=== PATIENT | male | born 1950 | race Caucasian/White ===

== ENCOUNTER 2022-10-30 14:17 | Inpatient (IN) | payer OTHER ==
[~2022-10-30] VITALS: Ht 180.3 cm; Wt 142.8 kg
[2022-10-30 15:18] LABS: Hematocrit 45.2 % (37.0-53.0); Mean Corpuscular HGB 33.9 pg (26.0-34.0); Mean Corpuscular HGB Conc 33.2 g/dL (31.5-36.5); Mean Corpuscular Volume 102 fL (80-100); Mean Platelet Volume 10.3 fL (9.1-12.4); Platelet Count 101 K/mm3 (150-400); RDW Coefficient Variation 15.2 % (11.7-14.2); RDW Standard Deviation 57.4 fL (35.1-46.3); Red Blood Cell Count 4.42 M/mm3 (4.30-5.90); White Blood Cell Count 16.42 K/mm3 (4.00-11.30)
[2022-10-30 15:30] LABS: Albumin, Blood 2.9 g/dL (3.4-5.0); Albumin/Globulin Ratio 0.9 (0.8-1.8); Bilirubin, Total 1.7 mg/dL (0.1-1.0); Bun/Creatinine Ratio 17.4 (12.0-20.0); Calcium, Blood 8.7 mg/dL (8.5-10.1); Creatinine, Blood 2.13 mg/dL (0.60-1.20); Globulin, Blood 3.2 g/dL (2.2-4.0); Potassium, Blood 3.7 mmol/L (3.5-5.5); Total Protein, Blood 6.1 g/dL (6.4-8.2)
[2022-10-30 16:21] LABS: BAND PERCENT MAN 33 % (0-8); BASOPHILS PERCENT MAN 0 % (0-2); EOSINOPHILS PERCENT MAN 0 % (0-6); LYMPHOCYTES ABSOLUTE MAN 0.49 K/mm3 (0.84-5.20); LYMPHOCYTES PERCENT MAN 3 % (21-46); METAMYELOCYTE ABSOLUTE MAN 0.49 K/mm3 (0.00-0.00); METAMYELOCYTE PERCENT MAN 3 % (0-0); MONOCYTES ABSOLUTE MAN 0.32 K/mm3 (0.16-1.47); MONOCYTES PERCENT MAN 2 % (4-13); MYELOCYTE ABSOLUTE MAN 0.32 K/mm3 (0.00-0.00); MYELOCYTE PERCENT MAN 2 % (0-0); NEUTROPHILS ABSOLUTE MAN 14.77 K/mm3 (1.96-9.15); SEG NEUTROPHILS PERCENT MAN 57 % (41-73); TOTAL CELLS COUNTED 100
[2022-10-30] MEDS ORDERED: ATEN25 (18:48)
[2022-10-30] MEDS ORDERED: AMLO5 (18:48)
[2022-10-30] MEDS ORDERED: FINA5 PO (18:49)
[2022-10-30] MEDS ORDERED: GLUCOPHAGE1000 M1 PO (18:49)
[2022-10-30] MEDS ORDERED: Aspir 8181 MG PO (18:50)
[2022-10-30] MEDS ORDERED: Vitamin B-12100 MCG (18:50)
[2022-10-30] MEDS ORDERED: VITAMIN D310 MC4 PO (18:50)
[2022-10-30] MEDS ORDERED: GABA100 (18:50)
[2022-10-30 19:21] LABS: Base Excess Venous -3.4 mmol/L; Bicarbonate Venous 21.3 mmol/L (24.0-30.0); PCO2 Venous 42.7 mmHg (38-42); pH Blood Venous 7.33 (7.34-7.37)
[2022-10-30 19:42] LABS: Bicarbonate Venous 22.5 mmol/L (24.0-30.0); PCO2 Venous 47.4 mmHg (38-42); PO2 Venous 31.9 mmHg (38-42); pH Blood Venous 7.34 (7.34-7.37)
[2022-10-30 19:43] LABS: Base Excess Venous -0.6 mmol/L
[2022-10-30 20:17] LABS: Anti-Xa UFH, PHA Monitoring <0.10 IU/mL; International Normalized Ratio 1.26; Prothrombin Time Results 13.1 Sec (9.7-11.5)
[2022-10-30 22:01] VITALS: BP 139/85
[2022-10-30 22:15] VITALS: BP 141/87
[2022-10-30 22:30] VITALS: BP 155/93
[2022-10-30] MEDS ORDERED: FLUT.05NI ×2 (22:36→22:37)
[2022-10-30 22:45] VITALS: BP 148/84
[2022-10-30 22:52] LABS: Source, Urine Clean Catch
[2022-10-30 22:54] LABS: Bilirubin, Urine Neg (Neg); Blood, Urine 5+ (Neg); Glucose Qualitative, Urine 3+ (Neg); Ketones, Urine Neg (Neg); Leukocyte Esterase, Urine 3+ (Neg); Nitrite, Urine Pos (Neg); Protein, Urine 2+ (Neg); Urobilinogen, Urine NORM (Normal)
[2022-10-30 23:00] VITALS: BP 149/99
[2022-10-30 23:15] VITALS: BP 168/106
[2022-10-30 23:44] LABS: Appearance, Urine Hazy (Clear); Color, Urine Yellow (P-Yellow)
[2022-10-30 23:46] LABS: Amorphous Light (0-Heavy); Bacteria Many /hpf; Red Blood Cells, Urine 0-2 /hpf (0-2); Squamous Epithelial Cells Few /hpf (Few)
[2022-10-31] VITALS (17 sets, daily range): BP systolic 104–155; BP diastolic 61–88
[2022-10-31 04:55] LABS: Hematocrit 46.2 % (37.0-53.0); Hemoglobin 15.9 g/dL (13.5-17.5); Mean Corpuscular HGB 34.1 pg (26.0-34.0); Mean Corpuscular HGB Conc 34.4 g/dL (31.5-36.5); Mean Corpuscular Volume 99 fL (80-100); Platelet Count 65 K/mm3 (150-400); RDW Coefficient Variation 15.4 % (11.7-14.2); RDW Standard Deviation 56.2 fL (35.1-46.3); Red Blood Cell Count 4.66 M/mm3 (4.30-5.90); White Blood Cell Count 24.95 K/mm3 (4.00-11.30)
[2022-10-31 05:24] LABS: Albumin, Blood 2.9 g/dL (3.4-5.0); Albumin/Globulin Ratio 0.7 (0.8-1.8); BAND PERCENT MAN 24 % (0-8); BASOPHILS PERCENT MAN 0 % (0-2); Bilirubin, Total 1.8 mg/dL (0.1-1.0); Bun/Creatinine Ratio 21.5 (12.0-20.0); Calcium, Blood 8.8 mg/dL (8.5-10.1); Creatinine, Blood 2.19 mg/dL (0.60-1.20); EOSINOPHILS PERCENT MAN 0 % (0-6); Globulin, Blood 4.1 g/dL (2.2-4.0); LYMPHOCYTES ABSOLUTE MAN 0.74 K/mm3 (0.84-5.20); LYMPHOCYTES PERCENT MAN 3 % (21-46); METAMYELOCYTE ABSOLUTE MAN 1.74 K/mm3 (0.00-0.00); METAMYELOCYTE PERCENT MAN 7 % (0-0); MONOCYTES ABSOLUTE MAN 2.49 K/mm3 (0.16-1.47); MONOCYTES PERCENT MAN 10 % (4-13); MYELOCYTE ABSOLUTE MAN 0.24 K/mm3 (0.00-0.00); MYELOCYTE PERCENT MAN 1 % (0-0); Magnesium, Blood 2.7 mg/dL (1.6-2.4); NEUTROPHILS ABSOLUTE MAN 19.71 K/mm3 (1.96-9.15); Potassium, Blood 4.1 mmol/L (3.5-5.5); SEG NEUTROPHILS PERCENT MAN 55 % (41-73); TOTAL CELLS COUNTED 100
--- NOTE | 2022-10-31 05:37 | NUR ---
SHIFT SUMMARY: Pt arrived from ER at 2150. Vitals stable, off pressors. Pt feels short of breath, especially with activity or laying flat. He is tachypneic but o2 sats remain in the 90s. 2L NC applied by pt request for comfort. Lung sounds clear, diminished in bases. CPAP applied for bedtime. Voiding using urinal with minimal assistance. Had multiple BMs in the bed negron. He is on bedrest per order. Heparin running at 15units/kg/hr. Denies pain. NPO for angiogram this AM. He has not slept well overnight. He is anxious and feels somewhat short of breath even with CPAP on.
--- NOTE | 2022-10-31 06:47 | NUR ---
Heparin paused at [address] Aranda due to drop in platelets to 65K this AM. Pharmacist notified.
--- NOTE | 2022-10-31 07:54 | NUR ---
ASSUMED CARE I ASSUMED CARE OF THIS PATIENT AT 0700. PATIENT IS LYING IN BED AWAKE AND WATCHING TV. CPAP IN PLACE W/ PRESSURE OF 12 AND A 1LPM BLEED IN. SPO2 MID 90'S. NO MEDICATIONS INF AT THIS TIME. CVP MONITORING IN PLACE TO RT IJ CL. PATIENT DENIES PAIN AT THIS TIME. STATES WILL BE BRINGING IN HOME CPAP TODAY. DR. POLLACK TO BEDSIDE THIS MORNING WITH ORDERS TO BEGIN DIET AND THAT PATIENT WILL NOT BE GOING TO PST SUPERVISOR TODAY. REPORT RECEIVED FROM SIGRID OSHEA.
[2022-10-31 11:41] LABS: Vancomycin, Random 20.7 ug/mL
--- NOTE | 2022-10-31 17:01 | NUR ---
SHIFT SUMMARY PATIENT REMAINED ON CPAP FOR COMFORT T/O SHIFT WITH PRESSURE OF 10 ONCE SWITCHED TO HOME CPAP. SPO2 MID TO HIGH 90'S. BP STABLE WITH MAPS GREATER THAN 65. LEVOPHED NEVER STARTED AND RETURNED TO PHARMACY. HEPARIN AND CVP MONITORING DC'D. STATUS DOWNGRADED TO PCU STATUS. FAMILY VISITED WITH PATIENT T/O DAY. NO OTHER CHANGES DURING SHIFT.
[2022-11-01] VITALS (7 sets, daily range): BP systolic 107–169; BP diastolic 67–97
[2022-11-01 03:57] LABS: Base Excess Venous 4.3 mmol/L; Bicarbonate Venous 27.2 mmol/L (24.0-30.0); PCO2 Venous 43.8 mmHg (38-42); pH Blood Venous 7.42 (7.34-7.37)
[2022-11-01 03:59] LABS: Hematocrit 44.6 % (37.0-53.0); Hemoglobin 15.6 g/dL (13.5-17.5); Mean Corpuscular HGB 34.2 pg (26.0-34.0); Mean Corpuscular Volume 98 fL (80-100); Mean Platelet Volume 10.6 fL (9.1-12.4); RDW Coefficient Variation 15.1 % (11.7-14.2); RDW Standard Deviation 54.5 fL (35.1-46.3); Red Blood Cell Count 4.56 M/mm3 (4.30-5.90); White Blood Cell Count 26.27 K/mm3 (4.00-11.30)
[2022-11-01 04:16] LABS: Platelet Count 47 K/mm3 (150-400)
[2022-11-01 04:21] LABS: BAND PERCENT MAN 4 % (0-8); BASOPHILS PERCENT MAN 0 % (0-2); EOSINOPHILS PERCENT MAN 0 % (0-6); LYMPHOCYTES ABSOLUTE MAN 0.78 K/mm3 (0.84-5.20); LYMPHOCYTES PERCENT MAN 3 % (21-46); METAMYELOCYTE ABSOLUTE MAN 0.52 K/mm3 (0.00-0.00); METAMYELOCYTE PERCENT MAN 2 % (0-0); MONOCYTES ABSOLUTE MAN 0.78 K/mm3 (0.16-1.47); MONOCYTES PERCENT MAN 3 % (4-13); NEUTROPHILS ABSOLUTE MAN 24.16 K/mm3 (1.96-9.15); SEG NEUTROPHILS PERCENT MAN 88 % (41-73); TOTAL CELLS COUNTED 100
[2022-11-01 04:55] LABS: Albumin, Blood 2.5 g/dL (3.4-5.0); Anion Gap 9 mmol/L (6-16); Blood Urea Nitrogen 63 mg/dL (8-24); Bun/Creatinine Ratio 33.2 (12.0-20.0); CO2, Blood 26 mmol/L (21-32); Calcium, Blood 8.6 mg/dL (8.5-10.1); Chloride, Blood 102 mmol/L (98-108); Glomerular Filtration Rate 37 (60-); Glucose, Blood 138 mg/dL (70-99); Phosphorus, Blood 2.6 mg/dL (2.5-4.9); Potassium, Blood 3.6 mmol/L (3.5-5.5); Sodium, Blood 137 mmol/L (136-145)
--- NOTE | 2022-11-01 05:15 | NUR ---
SHIFT SUMMARY: Pt had a fairly good night. He was able to get some sleep. Dyspnea has improved from yesterday. He is wearing his home CPAP with a 2L bleed in. Dyspnea with exertion but not at rest. He ambulated to the bathroom 2 times with a walker and nurse supervision. Voiding using the urinal, but also had 2 incontinent episodes, large volume of urine. Post void residual was 0ml. Vitals stable overnight. Rhythm is sinus bradycardia with a bundle branch block and irregular rate, rates as low as 43 (not sustained) but mostly in the 50s-60. Platelets were critically low at 47k on AM labs, Dr. Brooks notified.
--- NOTE | 2022-11-01 07:30 | NUR ---
ASSUMED CARE: PT RESTING IN BED WITH CPAP IN PLACE. NSR IN 60S. VSS. GRAPHIC DESIGN ASSISTANT AT BEDSIDE ASSISTING TO BEDSIDE TOILET. NO ACUTE NEEDS OR CONCERNS AT THIS TIME.
--- NOTE | 2022-11-01 11:01 | NUR ---
DR MCKEON CAME TO SEE PT AND MADE THEM AWARE OF HIS CONCERNS FOR LABS. DR PLANS TO REVIEW LABS FURTHER TO DETERMINE IF THERE IS A TREND IN PLATELET AND LACTIC COUNTS. FAMILY AT BEDSIDE AND AWARE OF THIS. DENIES NEEDS AT THIS TIME.
--- NOTE | 2022-11-01 16:20 | NUR ---
PT'S CENTRAL LINE REMOVED FROM RIGHT IJ WITHOUT ISSUE. REPORT GIVEN TO SIGRID DUNHAM. PT TRANSFERRED TO PCU 14 VIA WHEEL CHAIR. FAMILY AT BEDSIDE AND FOLLOWED TO NEW ROOM. NO ACUTE NEEDS OR CONCERNS.
--- NOTE | 2022-11-01 17:13 | NUR ---
TRANSFER/SHIFT SUMMARY PT ARRIVED TO PCU 14 @1635 VIA WHEELCHAIR. ALERT AND ORIENTED X4, ABLE TO FOLLOW COMMANDS AND MAKE NEEDS KNOWN. STRENGTH EQUAL BILATERALLY. BP STABLE, HR SR 65, SATS >95% ON ROOM AIR, RESPIRATIONS EVEN AND UNLABORED AT REST. PT STATES SOB WITH EXCERTION. LUNG SOUNDS CLEAR IN UPPER, DIM IN BASES. PT W/ HOME CPAP AT BEDSIDE, WEARS WHEN NEEDED. NO COMPLAINTS OF CP/PRESSURE AT THIS TIME. +1 EDEMA NOTED IN BLE. FAMILY AT BEDSIDE, UPDATED ON PT CARE WITH PERMISSION. PT ORIENTED TO ROOM AND CALL LIGHT SYSTEM. BED IN LOW, CALL LIGHT IN REACH, WILL REPORT TO ONCOMING RN.
--- NOTE | 2022-11-02 01:29 | NUR ---
STRAIGHT CATH #1 PATIENT FIDGETING AND UNABLE TO REST, BLADDER SCAN SHOWED OVER 700ML. PATIENT IS UNABLE TO URINATE. STRAIGHT CATH PERFORMED WITH 775 OUT, CLAMPING AT 500 FOR 30MINS AND UNCLAMPING FOR REMAINDER 275 OUT. PATIENT TOLERATED WELL, AND ASLEEP CURRENTLY WITH AVASURE CAMERA ON. .
[2022-11-02 03:35] LABS: BASOPHILS ABSOLUTE AUTO 0.05 K/mm3 (0.00-0.23); BASOPHILS PERCENT AUTO 0 % (0-2); EOSINOPHILS ABSOLUTE AUTO 0.05 K/mm3 (0.00-0.68); EOSINOPHILS PERCENT AUTO 0 % (0-6); Hematocrit 48.2 % (37.0-53.0); Hemoglobin 16.7 g/dL (13.5-17.5); IMMATURE GRAN ABSOLUTE AUTO 0.07 K/mm3 (0.00-0.10); IMMATURE GRAN PERCENT AUTO 0 % (0-1); LYMPHOCYTES ABSOLUTE AUTO 1.07 K/mm3 (0.84-5.20); LYMPHOCYTES PERCENT AUTO 6 % (21-46); MONOCYTES ABSOLUTE AUTO 1.04 K/mm3 (0.16-1.47); MONOCYTES PERCENT AUTO 6 % (4-13); Mean Corpuscular HGB Conc 34.6 g/dL (31.5-36.5); Mean Corpuscular Volume 98 fL (80-100); Mean Platelet Volume 11.8 fL (9.1-12.4); NEUTROPHILS ABSOLUTE AUTO 16.04 K/mm3 (1.96-9.15); NEUTROPHILS PERCENT AUTO 88 % (41-73); RDW Coefficient Variation 14.9 % (11.7-14.2); RDW Standard Deviation 54.6 fL (35.1-46.3); Red Blood Cell Count 4.91 M/mm3 (4.30-5.90); White Blood Cell Count 18.32 K/mm3 (4.00-11.30)
[2022-11-02 03:56] LABS: Alanine Aminotransfer (ALT/SGP 83 U/L (12-78); Albumin, Blood 2.7 g/dL (3.4-5.0); Albumin/Globulin Ratio 0.6 (0.8-1.8); Alk Phos 147 U/L (50-136); Anion Gap 11 mmol/L (6-16); Aspartate Aminotrans (AST/SGOT 92 U/L (12-37); Blood Urea Nitrogen 70 mg/dL (8-24); Bun/Creatinine Ratio 37.8 (12.0-20.0); CO2, Blood 27 mmol/L (21-32); Calcium, Blood 8.7 mg/dL (8.5-10.1); Chloride, Blood 103 mmol/L (98-108); Creatinine, Blood 1.85 mg/dL (0.60-1.20); Globulin, Blood 4.3 g/dL (2.2-4.0); Glomerular Filtration Rate 38 (60-); Glucose, Blood 160 mg/dL (70-99); Phosphorus, Blood 2.7 mg/dL (2.5-4.9); Potassium, Blood 3.9 mmol/L (3.5-5.5); Sodium, Blood 141 mmol/L (136-145)
[2022-11-02 04:11] LABS: Platelet Count 49 K/mm3 (150-400)
--- NOTE | 2022-11-02 04:19 | NUR ---
Contacted Dr. Brooks regarding patient switching to Afib at the end of dayshift, which is new to the patient. Patient has no CP or increased SOB and asymptommatic of it at this time. Rates are 90-120, up to 140 with activity. Patients platelets are also low, however improved from yesterday and not on anticoagulation. Order to just monitor tele for rate changes.
--- NOTE | 2022-11-02 05:58 | NUR ---
Assumed care of pt at 1900. A/Ox4. Maintains over 95% on RA while awake and CPAP while asleep. LS clear on top and dim at bases. Patient is now in Afib 90-110 but up to 140's with activity with significant MUNSON. 2+ pitting edema in BLE. VSS. See previous RN note. Will report to kiran RN.
[2022-11-02 08:06] VITALS: BP 132/85
[2022-11-02 11:48] VITALS: BP 142/91
--- NOTE | 2022-11-02 11:48 | NUR ---
PATIENT EDUCATED RE: IGNITION SOURCES AND RISK OF INJURY WHILE OXYGEN IN USE. PATIENT DENIES SMOKING BUT IS ON NC OXYGEN. PATIENT ALSO DENIES HAVING IGNITION SOURCES IN HIS PERSONAL BELONGINGS. PATIENT VERBALIZED UNDERSTANDING OF EDUCATION AND HAD NO FURTHER QUESTIONS AT THIS TIME.
[2022-11-02 15:52] VITALS: BP 130/93
--- NOTE | 2022-11-02 17:10 | NUR ---
SHIFT SUMMARY: PT REMAINS ALERT AND ORIENTED X4, BP STABLE, PT REMAINS AFIB 100'S, 120'S WITH ACTIVITY, PT STATES NEW ONSET. MD MADE AWARE THIS AM, ORDERS RECEIVED FOR RATE CONTROL, SEE EMAR. AFEBRILE. SATS >97% ON ROOM AIR, WEARS CPAP W/ 2L BLEED IN WHILE SLEEPING. PT ABLE TO WORK WITH PT/OT THIS AFTERNOON. IND TO AND FROM BATHROOM. CALLS APPROPRIATELY. FAMILY AT BEDSIDE THIS EVENING. BED IN LOW, CALL LIGHT IN REACH, WILL REPORT TO ONCOMING RN.
[2022-11-02 20:11] VITALS: BP 109/70
[2022-11-03 03:48] VITALS: BP 128/99
[2022-11-03 03:58] LABS: BASOPHILS ABSOLUTE AUTO 0.03 K/mm3 (0.00-0.23); BASOPHILS PERCENT AUTO 0 % (0-2); EOSINOPHILS ABSOLUTE AUTO 0.08 K/mm3 (0.00-0.68); EOSINOPHILS PERCENT AUTO 1 % (0-6); Hematocrit 46.4 % (37.0-53.0); Hemoglobin 16.1 g/dL (13.5-17.5); IMMATURE GRAN ABSOLUTE AUTO 0.06 K/mm3 (0.00-0.10); IMMATURE GRAN PERCENT AUTO 1 % (0-1); LYMPHOCYTES ABSOLUTE AUTO 1.08 K/mm3 (0.84-5.20); LYMPHOCYTES PERCENT AUTO 11 % (21-46); MONOCYTES ABSOLUTE AUTO 1.07 K/mm3 (0.16-1.47); MONOCYTES PERCENT AUTO 11 % (4-13); Mean Corpuscular HGB 33.5 pg (26.0-34.0); Mean Corpuscular HGB Conc 34.7 g/dL (31.5-36.5); Mean Corpuscular Volume 97 fL (80-100); Mean Platelet Volume 11.6 fL (9.1-12.4); NEUTROPHILS ABSOLUTE AUTO 7.42 K/mm3 (1.96-9.15); NEUTROPHILS PERCENT AUTO 76 % (41-73); RDW Coefficient Variation 14.7 % (11.7-14.2); RDW Standard Deviation 52.8 fL (35.1-46.3); White Blood Cell Count 9.74 K/mm3 (4.00-11.30)
[2022-11-03 04:07] LABS: Platelet Count 45 K/mm3 (150-400)
[2022-11-03 04:19] LABS: Albumin, Blood 2.6 g/dL (3.4-5.0); Anion Gap 10 mmol/L (6-16); Blood Urea Nitrogen 62 mg/dL (8-24); Bun/Creatinine Ratio 37.6 (12.0-20.0); CO2, Blood 26 mmol/L (21-32); Calcium, Blood 8.4 mg/dL (8.5-10.1); Chloride, Blood 102 mmol/L (98-108); Creatinine, Blood 1.65 mg/dL (0.60-1.20); Glomerular Filtration Rate 44 (60-); Glucose, Blood 154 mg/dL (70-99); Magnesium, Blood 2.3 mg/dL (1.6-2.4); Potassium, Blood 3.7 mmol/L (3.5-5.5); Sodium, Blood 138 mmol/L (136-145)
--- NOTE | 2022-11-03 06:15 | NUR ---
SHIFT SUMMARY PATIENT ALERT AND ORIENTED x4. BP STABLE, TELE READING AFIB 100-120s, UP TO 150s WITH ACTIVITY, PATIENT WEARING CPAP OFF AND ON DURING THE NIGHT WITH O2 SAT >92%. PATIENT INDEPDENDENT TO BATHROOM, ADEQUATE OUTPUT DURING THE NIGHT. NO OTHER SIGNIFICANT CHANGES DURING THE NIGHT, WILL REPORT TO DAY SHIFT RN. PATIENT EDUCATED ON INCREASED IGNITION RISK WITH O2 USE. PATIENT VERBALIZED UNDERSTANDING AND PATIENT REPORTED THAT HE DOES NOT SMOKE. WILL CONTINUE TO MONITOR IGNITION RISK.
[2022-11-03 07:45] VITALS: BP 132/72
--- NOTE | 2022-11-03 09:39 | NUR ---
SAFETY PATIENT EDUCATED REGARDING IGNITION SOURCES AND RISK OF INJURY WHILE OXYGEN IS IN USE. PATIENT DENIES SMOKING AND PATIENT VERBALIZE UNDERSTANDING.
[2022-11-03] MEDS ORDERED: METO25 PO (09:44)
[2022-11-03] MEDS ORDERED: FURO40 PO (09:44)
[2022-11-03] MEDS ORDERED: INSULANPEN SC (09:45)
[2022-11-03] MEDS ORDERED: CIPR500 PO (09:46)
[2022-11-03] MEDS ORDERED: POTA10T PO (09:47)
--- NOTE | 2022-11-03 12:32 | NUR ---
DISCHARGE: PT D/C @1232 VIA WHEELCHAIR WITH ALL BELONGINGS. DISCHARGE INSTRUCTIONS AND EDUCATION PROVIDED.
== END 2022-11-03 12:34 | disposition home or self-care (01) | DRG 871 ==
LOC: ER 14:17 → ICUE 19:43 → PCU 11-01 16:17
PROVIDERS: Hospitalist; Internal Medicine; Nurse Practitioner Acute Care; Student in an Organized Health Care Education/Training Program; ADMIT Internal Medicine
PROC: 02HV33Z Insertion of Infusion Device into Superior Vena Cava, Percutaneous Approach (ICD-10-PCS; principal; 2022-10-30)
PROC: B548ZZA Ultrasonography of Superior Vena Cava, Guidance (ICD-10-PCS; 2022-10-30)
PROC: 3E03329 Introduction of Other Anti-infective into Peripheral Vein, Percutaneous Approach (ICD-10-PCS; 2022-10-30)
DX: A41.4 Sepsis due to anaerobes (principal); I21.A1 Myocardial infarction type 2; J96.01 Acute respiratory failure with hypoxia; R65.21 Severe sepsis with septic shock; I50.33 Acute on chronic diastolic (congestive) heart failure; E87.1 Hypo-osmolality and hyponatremia; E87.20 Acidosis, unspecified; N17.9 Acute kidney failure, unspecified; Z68.41 Body mass index [BMI] 40.0-44.9, adult; I13.0 Hypertensive heart and chronic kidney disease with heart failure and stage 1 through stage 4 chronic kidney disease, or unspecified chronic kidney disease; N39.0 Urinary tract infection, site not specified; D69.59 Other secondary thrombocytopenia; I48.0 Paroxysmal atrial fibrillation; E11.40 Type 2 diabetes mellitus with diabetic neuropathy, unspecified; E66.01 Morbid (severe) obesity due to excess calories; N18.32 Chronic kidney disease, stage 3b; B96.89 Other specified bacterial agents as the cause of diseases classified elsewhere; I95.9 Hypotension, unspecified; E11.22 Type 2 diabetes mellitus with diabetic chronic kidney disease; G47.33 Obstructive sleep apnea (adult) (pediatric); N40.0 Benign prostatic hyperplasia without lower urinary tract symptoms; E78.5 Hyperlipidemia, unspecified; Z99.89 Dependence on other enabling machines and devices; Z88.5 Allergy status to narcotic agent; Z79.82 Long term (current) use of aspirin; Z79.899 Other long term (current) drug therapy
CPT/HCPCS: 36415; 36556; 51798; 71045; 71260; 76770; 80053; 80069; 80202; 81001; 82803; 82947; 83605; 83735; 83880; 84100; 84145; 84443; 84484; 85025; 85520; 85610; 85730; 87040; 87077; 87086; 87186; 93005; 93010; 94660; 94762; 96374-59; 97110; 97116; 97162; 97530; 99285-25; A9270; C1751; C8929; J0456; J0696; J1644; J1815; J1940; J3010; J3370; J7030; J7050; J7060; P9612; Q9957; Q9967